=== PATIENT | female | born 2000 | race Caucasian/White ===

== ENCOUNTER 2023-03-18 15:17 | Emergency (ER) | payer BC, SELFPAY ==
[2023-03-18 15:39] VITALS: BP 141/76; PULSE 79; RESP 14; TEMP 36.8; O2SAT 100
--- NOTE | 2023-03-18 15:48 | ED.EYEPROB ---
HPI - Eye Problem General Chief complaint: Eye Problems Stated complaint: both eyes, scratched cornea Source: patient and RN notes reviewed History of Present Illness HPI Narrative: 22 yo F presents to urgent care with complaints of bilateral eye irritation and photophobia that started 2 days ago. Pt states she recently had pink eye which was completely resolved Tuesday of last week. Pt began using contacts again last without issue. Pt denies any issue until two days ago. Denies any visual disturbance. Denies any eye pain or discharge. Related Data Home Medications Medication Instructions Recorded Confirmed norgestimate 0.25 mg-ethinyl 1 tablet PO DAILY 03/18/23 03/18/23 estradiol 35 mcg tablet (Estarylla) Allergies Allergy/AdvReac Type Severity Reaction Status Date / Time No Known Allergies Allergy Verified 03/18/23 15:47 Review of Systems Review of Systems: CONSTITUTIONAL: Denies fever, chills, or sweats. EYES: Denies visual changes or discharge. Reports bilateral eye irritaion and itchiness, more so on the right. Pt reports photophobia. ENT: Denies otalgia and sore throat CARDIOVASCULAR: Denies chest pain, palpitations, or edema. RESPIRATORY: Denies cough or dyspnea. GASTROINTESTINAL: Denies abdominal pain, nausea, vomiting, or diarrhea. GENITOURINARY: Denies dysuria or hematuria. SKIN: Denies rash or itching. MUSCULOSKELETAL: Denies back pain, joint pain, or myalgia. NEUROLOGIC: Denies headache, numbness, or weakness. Pertinent positives per HPI. PMFSH Comments At the time of my signature, I reviewed and agree with the nursing past medical, surgical, social, and family history. There is no relevant family history pertinent to the patient complaint. Exam Narrative: GENERAL: This is a well-nourished, well-developed patient, in no apparent distress. HEAD: normocephalic, atraumatic. EYES: Mild erythema to left lower sclera. No drainage or edema noted. Calderón lamp exam performed with no corneal abrasion or ulceration noted. Lid inversion performed with no FB found. EARS: External ears normal, auditory canals clear and without drainage. Hearing grossly intact. NOSE: External nose normal with no obvious nasal discharge, nares without redness, no rhinorrhea. THROAT: Mucous membranes moist, posterior pharynx clear. NECK: Neck supple, non-tender without lymphadenopathy, masses or thyromegaly. CARDIOVASCULAR: Regular rate and rhythm without murmurs, gallops, or rubs. RESPIRATORY: Clear to auscultation. Breath sounds equal bilaterally. No wheezes, rales, or rhonchi. SKIN: warm, intact with no suspicious lesions or rash, good texture and turgor. NEURO: awake, alert, and oriented to person, place and time. There were no obvious focal neurologic abnormalities. Course Course Level of Care: Express Care Visit Vital Signs Vital signs: Vital Signs Temperature 98.2 F 03/18/23 15:39 Pulse Rate 79 03/18/23 15:39 Respiratory Rate 14 03/18/23 15:39 Blood Pressure 141/76 H 03/18/23 15:39 Pulse Oximetry 100 03/18/23 15:39 Oxygen Delivery Room Air 03/18/23 15:39 Temperature 98.2 F 03/18/23 15:39 Pulse Rate 79 03/18/23 15:39 Respiratory Rate 14 03/18/23 15:39 Blood Pressure 141/76 H 03/18/23 15:39 Pulse Oximetry 100 03/18/23 15:39 Oxygen Delivery Room Air 03/18/23 15:39 Reviewed MDM - Eye Problem MDM Narrative Medical decision making narrative: Keep eyes lubricated and keep appt for next week at the eye MD. If symptoms worsen, go to ER. Differential Diagnosis Differential diagnosis: Likely corneal abrasion, conjunctivitis and corneal ulcer Critical Care Time Critical Care Time Critical Care Time: No Discharge Plan Discharge Clinical Impression: Dry eye Patient Disposition: Home, Self-Care Condition: Stable Instructions: Eye Lubricant (Into the eye) Additional Instructions: Keep eyes lubricated and keep appt for next week at t
== END 2023-03-18 16:02 | disposition home or self-care (01) ==
PROVIDERS: Emergency Provider Nurse Practitioner Family
DX: H04.123 Dry eye syndrome of bilateral lacrimal glands (principal)
CPT/HCPCS: 99213; A9270; G0463